=== PATIENT | male | born 1955 | race Two or more races ===

== ENCOUNTER 2020-04-03 17:40 | Inpatient (IN) | payer MEDICAID, OTHER ==
[~2020-04-03] VITALS: Ht 170.2 cm; Wt 70.3 kg
[2020-04-03 18:45] LABS: Basophils # (auto) 0 10 ^3/uL (0-0.2); Eosinophils # (auto) 0 10 ^3/uL (0-0.8); Eosinophils % (auto) 0.1 % (0.0-7.0); Lymphocytes # (auto) 0.8 10 ^3/uL (0.4-5.4)
[2020-04-03 18:47] LABS: Basophils % (auto) 0.2 % (0.0-2.0); Hematocrit 31.3 % (41.0-53.0); Hemoglobin 10.2 g/dL (13.5-17.5); Lymphocytes % (auto) 4.4 % (10.0-50.0); Mean Corpuscular Hemoglobin 26.7 pg (28.0-32.0); Mean Corpuscular Hgb Conc. 32.7 g/dL (32.0-36.0); Mean Corpuscular Volume 81.8 fL (80.0-100.0); Monocytes # (auto) 1.3 10 ^3/uL (0-1.3); Monocytes % (auto) 6.7 % (0.0-12.0); Neutrophils % (auto) 88.6 % (37.0-80.0); Platelet Count (auto) 382 10^3/uL (140-450); Red Blood Cells 3.82 10^6/uL (4.5-5.90); Red Cell Distribution Width 18.3 % (11.8-14.3); White Blood Cell 19.2 10^3/uL (4.4-10.8)
[2020-04-03 19:05] LABS: Albumin 1.9 g/dL (3.4-5.0); BUN/Creatinine Ratio 17.5; Calcium 8.1 mg/dL (8.5-10.1); Potassium 3.4 mmol/L (3.5-5.1)
[2020-04-03 19:13] LABS: Bilirubin, Total 2.3 mg/dL (0.2-1.0); Total Protein 6.8 g/dL (6.4-8.2)
[2020-04-03 23:56] LABS: Lactic Acid w/Reflex 2.4 mmol/L (0.4-2.0)
[2020-04-04] MEDS ORDERED: SODIUM CHLORIDE 0.9% 1,000 ML IV ONE (01:00)
[2020-04-04] MEDS ORDERED: IOHEXOL 300 MG/ML 100ML BOTTLE IJ ONE (01:09)
[2020-04-04] MEDS ORDERED: VANCOMYCIN 1GM/250ML 250 ML IV ONE (01:15)
[2020-04-04] MEDS ORDERED: PIPERACILLIN-TAZOB 3.375GM 100 ML IV ONE (01:15)
[2020-04-04] MEDS ORDERED: SODIUM CHLORIDE 0.9% 500 ML IV ONE (01:45)
[2020-04-04 03:02] LABS: Urine Bacteria FEW /hpf (None Seen); Urine Blood Negative /uL (Negative); Urine WBC 5 /hpf (0 - 3)
[2020-04-04 03:28] LABS: Urine Specific Gravity > 1.050 (1.001-1.035)
[2020-04-04] MEDS ORDERED: ONDANSETRON HCL 4 MG/2 ML VIAL IV PRN (05:45)
[2020-04-04] MEDS ORDERED: TEMAZEPAM 15 MG CAP PO PRN (05:45)
[2020-04-04] MEDS ORDERED: MORPHINE SULF INJ 2 MG/ML SYRINGE 1ML IV PRN ×2 (05:45→06:00)
[2020-04-04] MEDS ORDERED: SODIUM CHLORIDE 0.9% 1,000 ML IV SCH (05:45)
[2020-04-04] MEDS ORDERED: HYDROcodone-ACET 5/325MG TAB PO PRN (05:45)
[2020-04-04] MEDS ORDERED: NITROGLYCERIN 0.4 MG SL TAB SL PRN (06:00)
[2020-04-04] MEDS ORDERED: levoFLOXacin 500MG 100 ML IV SCH (07:00)
[2020-04-04] MEDS ORDERED: HYDROmorphone HCL 2 MG/ML VL IV PRN (09:00)
[2020-04-04] MEDS ORDERED: PANTOPRAZOLE 40 MG/10 ML VIAL INJ IV SCH (10:00)
[2020-04-04 16:00] VITALS: BP 104/62
== END 2020-04-04 16:22 | disposition home or self-care (01) | DRG 281 ==
LOC: ER 17:40 → TELE 17:41
PROVIDERS: ADMIT Nurse Practitioner; ATTEND Internal Medicine
DX: C78.7 Secondary malignant neoplasm of liver and intrahepatic bile duct (principal); E43 Unspecified severe protein-calorie malnutrition; C19 Malignant neoplasm of rectosigmoid junction; K56.600 Partial intestinal obstruction, unspecified as to cause; N39.0 Urinary tract infection, site not specified; R18.8 Other ascites; C78.01 Secondary malignant neoplasm of right lung; C78.02 Secondary malignant neoplasm of left lung; C78.6 Secondary malignant neoplasm of retroperitoneum and peritoneum; K52.9 Noninfective gastroenteritis and colitis, unspecified; K83.8 Other specified diseases of biliary tract; Z80.0 Family history of malignant neoplasm of digestive organs; Z85.048 Personal history of other malignant neoplasm of rectum, rectosigmoid junction, and anus; Z90.49 Acquired absence of other specified parts of digestive tract
CPT/HCPCS: 36415; 71260; 74177; 76705; 80053; 81001; 82378; 83605; 83880; 85025; 87040; 87086; 87088; 87186; 93005; C9113; G0378; J1956; J2405; J2543